=== PATIENT | female | born 1950 | race Caucasian/White ===

== ENCOUNTER 2018-02-21 06:15 | Inpatient (IN) | END 2018-02-22 19:00 | disposition home health service (06) | DRG 470 ==

== ENCOUNTER → 2018-09-25 | Outpatient (CLI) | payer MEDICARE, BC ==
[~2018-09-25] MED LIST: CELE200C PO; COMBIG5 LEFT EYE; CRES5 PO; CYAN500T46 PO; ERGO500013 PO; EZET10TA31 PO; FER325 PO; METF100010 PO; PRED5DRO20 LEFT EYE; PREG150C PO; SITA100T11 PO; SOLI10TA2 PO
--- NOTE | 2018-09-25 16:30 | CONS ---
Consult Date/Type/Reason Admit Date/Time Initial Consult Date Reason for Consultation Left total knee and right lateral hip pain Date/Time of Note DATE: 09/25/18 TIME: 16:02 Subjective DOS: 02/21/2018 Procedure: Left TKA 7 months s/p left TKA who returns today because of 3 months of worsening knee pain. The pain is mostly along the anteromedial aspect of the tibia. Denies any fevers or chills. Denies any swelling. Denies any erythema. She has no pain with range of motion of the knee. The pain mostly limits how much is able to walk. She also complains of significant right lateral hip pain which has been going on for longer period of time approximately 5 months. Denies numbness and tingling. Does have a history of back problems including lumbar spine surge ry. Narcotic Pain medication: No Gait Aids: None Pain better than before surgery: Yes Pleased with outcome. Objective Vitals Weight: 185 pound Height:'s 5 feet 4 inches Temperature: 98.2 Heart Rate: 84 Blood Pressure: 128/58 Respiratory Rate: 12 Exam General: Alert, oriented x3. No Acute Distress. Heart: Regular rate and rhythm. Lungs: No respiratory distress. No accessory muscle use. Left lower Extremity: Incision is healed. No skin breakdown, no surrounding erythema. Sensation intact to light touch in a sural, saphenous, deep peroneal, superficial peroneal, medial and lateral plantar nerve distribution. Motor is intact, patient able to dorsiflex and plantarflex ankle and extend and flex great toe. Dorsalis Pedis pulse +2, Brisk capillary refill. Compartments are soft. ROM: Extension: 0 Flexion: 130 Varus/ Valgus Stability: Stable in extension, flexion, and throughout range of motion A/P Stability: Stable Tender to palpation over the pes anserine Examination of the RIGHT hip reveals painless full range of motion of the right hip. There is tenderness palpation of the greater trochanter to her and proximal IT band. Gait: Brisk pace. Slightly antalgic with a mild Trendelenburg component on the right. No gait aid. Results/Medications Home Meds Reported Medications Ergocalciferol (Vitamin D2) (VITAMIN D2) 50,000 Unit Capsule, 23916 UNIT PO EVERY TUESDAY, CAP 02/21/18 Prednisolone Acetate* (Pred Forte*) 5 Ml Susp, 1 DROP LEFT EYE THREE TIMES A WEEK, EA 02/21/18 Brimonidine/Timolol* (Combigan*) 5 Ml Drops, 1 DROP LEFT EYE BID, BOTTLE 02/21/18 Ferrous Sulfate* (Ferrous Sulfate*) 325 Mg Tabec, 325 MG PO DAILY, TAB 02/21/18 Cyanocobalamin* (Vitamin B12*) 500 Mcg Tab, 1000 MCG PO DAILY, TAB 02/21/18 Ezetimibe* (Zetia*) 10 Mg Tablet, 10 MG PO HS, TAB 02/21/18 Rosuvastatin Calcium* (Crestor*) 5 Mg Tablet, 5 MG PO QHS, #30 TAB 02/21/18 Solifenacin* (Vesicare*) 10 Mg Tablet, 10 MG PO DAILY, TAB 02/21/18 Metformin Hcl* (Metformin Hcl*) 1,000 Mg Tablet, 1000 MG PO WITH BREAKFAST DINNE, #60 TAB 02/21/18 Pregabalin* (Lyrica*) 150 Mg Capsule, 150 MG PO BID, CAP 02/21/18 Celecoxib* (Celebrex*) 200 Mg Capsule, 200 MG PO BID, CAP 02/21/18 Sitagliptin* (Januvia*) 100 Mg Tablet, 100 MG PO DAILY, #30 TAB 02/21/18 Imaging Xrays obtained in clinic today and personally reviewed by myself: Bilateral AP and merchant views and a dedicated lateral of the left knee demonstrates left knee s/p TKA. Components in good position and alignment. No signs of wear, osteolysis, loosening, component failure, or fracture. No acute complications. The patient received a full set of films and personally reviewed by myself today in clinic including an AP pelvis and an AP and lateral of the affected hip. The hip is reduced. There is no significant loss of joint space. There is no osteophyte formation. There is no subchondral sclerosis. There are no subchondral cysts. There is no significant deformity of the the proximal femur, femoral neck, or acetabulum. The pelvis is in continuity. Bone quality radiographically: Good Assessment/Plan Hospital Course (Demo Recall) 68-year-old female 7 months status post left total knee arthroplasty. She is doing very well until 3 months ago when she started to get anterior medial tibial pain. She is also had 5-month history of right greater trochanteric bursitis and IT band tendinitis. Examination shows left total knee is mechanically stable and is functioning well. Her pes anserine bursitis could be result of an altered gait secondary to her greater trochanteric bursitis. At this time the underlying cause of her greater trochanteric bursitis is not clear as it may be from her lower spine as well. At this time we will start conservative treatment which will include focused physical therapy for the greater trochanteric bursitis and IT band tendinitis. If this fails to resolve her greater trochanteric bursitis and her pes anserine bursitis will reevaluate for steroid injection. At the very least I would like to see her back for her annual surveillance in approximately 5 months for reexamination and x-rays of the left knee. OMA IRELAND MD Sep 25, 2018 16:27
--- NOTE | 2018-09-27 07:15 | RADRPT ---
PROCEDURE: Bilateral knee series CLINICAL INDICATION: Pain TECHNIQUE: AP weightbearing, lateral weightbearing, and sunrise views were obtained of the right le ft knees. COMPARISON: None FINDINGS: There is an unremarkable total left knee prosthesis without dislocation or loosening. No evidence of acute fractures. No evidence of malalignment. No focal bony blastic or lytic lesions. No evidence of right or left knee joint effusions. Soft tissues are unremarkable. IMPRESSION: 1. Unremarkable total left knee prosthesis. 2. No acute fractures dislocations or joint effusions. RPTAT:AAJJ Physician Mauri Date Time Electronically viewed and signed by Physician Mauri on 09/27/2018 07:15 /
--- NOTE | 2018-09-27 07:16 | RADRPT ---
PROCEDURE: Pelvis and right hip series CLINICAL INDICATION: Pain TECHNIQUE: AP pelvis and AP and frog lateral views of the right hip were performed. COMPARISON: None. 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 No evidence acute fractures or dislocations. Bony mineral ization is normal. No focal bony blastic or lytic lesions. Soft tissues are unremarkable. 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 RPTAT:AAJJ Physician Mauri Date Time Electronically viewed and signed by Physician Mauri on 09/27/2018 07:16 BM/
== END | disposition home or self-care (01) ==
LOC: HKI 13:23
PROVIDERS: ATTEND Orthopaedic Surgery Adult Reconstructive Orthopaedic Surgery
DX: M25.562 Pain in left knee (principal); M25.551 Pain in right hip; Z96.652 Presence of left artificial knee joint
CPT/HCPCS: 73502; 73562; G0463